=== PATIENT | female | born 1990 | race Asian ===

== ENCOUNTER → 2021-01-21 | Outpatient (CLI) | payer OTHER | END | disposition home or self-care (01) | LOC: STAR 12:12 | PROVIDERS: ATTEND Obstetrics & Gynecology Maternal & Fetal Medicine | DX: Z20.822 Contact with and (suspected) exposure to COVID-19 (principal) | CPT/HCPCS: U0003; U0005 ==

== ENCOUNTER 2021-01-22 15:24 | Day surgery (SDC) | payer OTHER ==
[~2021-01-22] VITALS: Ht 162.6 cm; Wt 54.3 kg
[~2021-01-22 15:24] MED LIST: CEFAZOLIN 1,000 MG ONE; DEXAMETHASONE 4 MG/ML, 1ML ONE; ONDANSETRON 2MG/ML, 2ML ONE; PROPOFOL 10 MG/ML, 20ML ONE
[2021-01-22 15:53] LABS: BASOPHILS % (AUTO) 0 % (0-1); EOSINOPHILS % (AUTO) 1 % (1-7); LYMPHOCYTES % (AUTO) 11 % (22-44); MEAN CORPUSCULAR HEMOGLOBIN 31.1 pg (27.0-34.8); MEAN PLATELET VOLUME 7.4 fL (7.4-10.4); MONOCYTES % (AUTO) 4 % (2-9); NEUTROPHILS % (AUTO) 84 % (42-75); PLATELET COUNT 281 x10^3/uL (130-400); RED BLOOD COUNT 4.16 x10^6/uL (3.82-5.3); RED CELL DISTRIBUTION WIDTH 14.2 % (9.6-15.2)
[2021-01-22] MEDS ORDERED: CHLORHEXIDINE 15 ML UDC PO ONE (16:00)
[2021-01-22] MEDS ORDERED: LACTATED RINGERS 1,000 ML IV SCH (16:00)
[2021-01-22] MEDS ORDERED: PLEASE ENTER ALLERGIES MC SCH (16:00)
[2021-01-22] MEDS ORDERED: PLEASE ENTER HEIGHT AND WEIGHT MC SCH (16:00)
[2021-01-22 16:16] VITALS: BP 132/93
[2021-01-22] MEDS ORDERED: OXYTOCIN 10 UNITS/ML, 1ML ONE (17:08)
[2021-01-22] MEDS ORDERED: METHYLERGONOVINE 0.2 MG/ML IM ONE (17:08)
[2021-01-22] MEDS ORDERED: MISOPROSTOL 200 MCG TABLET ONE (17:08)
[2021-01-22] MEDS ORDERED: FENTANYL PF 100 MCG/2ML ONE (17:25)
[2021-01-22] MEDS ORDERED: MIDAZOLAM 1 MG/ML, 2ML ONE (17:25)
[2021-01-22] MEDS ORDERED: PROMETHAZINE 25 MG/ML, 1ML IVPush PRN (18:30)
[2021-01-22] MEDS ORDERED: ACETAMINOPHEN 325 MG TABLET PO PRN (18:30)
[2021-01-22] MEDS ORDERED: METHYLERGONOVINE 0.2 MG/ML IM PRN (18:30)
[2021-01-22] MEDS ORDERED: KETOROLAC 30 MG/1 ML IVPush PRN (18:30)
[2021-01-22] MEDS ORDERED: MEPERIDINE/PF 25MG/0.5ML IVPush PRN (18:30)
[2021-01-22] MEDS ORDERED: HYDROmorphone 1 MG/ML, 1ML INJ IVPush PRN (18:30)
[2021-01-22] MEDS ORDERED: OXYcodone 5 MG/5 ML ORAL.SOL UDC PO PRN (18:30)
[2021-01-22] MEDS ORDERED: FENTANYL PF 100 MCG/2ML IV PRN (18:30)
[2021-01-22] MEDS ORDERED: ONDANSETRON 2MG/ML, 2ML IVPush PRN (18:30)
[2021-01-22 20:03] VITALS: BP 108/79
[2021-01-22 20:20] VITALS: BP 113/83
== END 2021-01-22 20:43 | disposition home or self-care (01) ==
LOC: OR 15:24 → 4NE 19:42 → OR 20:43
PROVIDERS: ATTEND Obstetrics & Gynecology Maternal & Fetal Medicine
DX: Z33.2 Encounter for elective termination of pregnancy (principal); Q97 Other sex chromosome abnormalities, female phenotype, not elsewhere classified; I10 Essential (primary) hypertension; J45.909 Unspecified asthma, uncomplicated; Z88.0 Allergy status to penicillin
CPT/HCPCS: 36415; 59841; 76815; 85025; 86850; 86900; 88305; J0690; J1100; J2210; J2250; J2405; J2590; J2704; J3010; J7120; G0378